=== PATIENT | female | born 1960 | race Caucasian/White ===

== ENCOUNTER → 2017-11-08 | Outpatient (CLI) | payer MEDICAID ==
[~2017-11-08] MED LIST: NOMEDS XX; PYRIDIUM200 M1 PO; SYNTHROID0.025 MG PO; TYLENOL W/CODEI1 TA2 PO; ZITHROMAX Z-PA250 M1 PO
== END ==
LOC: LAB 11:11
DX: D27.0 Benign neoplasm of right ovary (principal); R10.2 Pelvic and perineal pain